=== PATIENT | male | born 1950 | race Caucasian/White ===

== ENCOUNTER → 2020-06-16 | Outpatient (CLI) | payer SELFPAY | END | disposition home or self-care (01) | LOC: PLD 12:30 → LAB SHORT 12:30 | DX: J02.9 Acute pharyngitis, unspecified (principal) | CPT/HCPCS: 87081 ==

== ENCOUNTER 2021-01-19 13:17 | Emergency (ER) | payer OTHER ==
[~2021-01-19] VITALS: Ht 172.7 cm; Wt 93.0 kg
== END 2021-01-19 13:43 | disposition home or self-care (01) ==
LOC: ER 13:17
DX: R04.0 Epistaxis (principal)
CPT/HCPCS: 30901; 99283-25

== ENCOUNTER 2021-01-20 13:22 | Emergency (ER) | payer OTHER ==
[~2021-01-20] VITALS: Ht 172.7 cm; Wt 93.0 kg
== END 2021-01-20 13:50 | disposition home or self-care (01) ==
LOC: ER 13:22
DX: Z44.8 Encounter for fitting and adjustment of other external prosthetic devices (principal)
CPT/HCPCS: 99282

== ENCOUNTER 2021-04-10 03:31 | Inpatient (IN) | payer OTHER ==
[~2021-04-10] VITALS: Ht 170.2 cm; Wt 90.7 kg
[2021-04-10 03:55] LABS: BASOPHILS ABSOLUTE AUTO 0.05 K/mm3 (0.00-0.23); BASOPHILS PERCENT AUTO 0 % (0-2); EOSINOPHILS ABSOLUTE AUTO 0.46 K/mm3 (0.00-0.68); EOSINOPHILS PERCENT AUTO 3 % (0-6); Hematocrit 32.2 % (37.0-53.0); Hemoglobin 11.2 g/dL (13.5-17.5); IMMATURE GRAN ABSOLUTE AUTO 0.12 K/mm3 (0.00-0.10); IMMATURE GRAN PERCENT AUTO 1 % (0-1); LYMPHOCYTES ABSOLUTE AUTO 1.73 K/mm3 (0.84-5.20); LYMPHOCYTES PERCENT AUTO 10 % (21-46); MONOCYTES ABSOLUTE AUTO 0.63 K/mm3 (0.16-1.47); MONOCYTES PERCENT AUTO 4 % (4-13); Mean Corpuscular HGB 33.9 pg (26.0-34.0); Mean Corpuscular HGB Conc 34.8 g/dL (31.5-36.5); Mean Corpuscular Volume 98 fL (80-100); Mean Platelet Volume 8.9 fL (9.1-12.4); NEUTROPHILS PERCENT AUTO 83 % (41-73); Platelet Count 146 K/mm3 (150-400); RDW Coefficient Variation 13.6 % (11.7-14.2); RDW Standard Deviation 48.6 fL (35.1-46.3); White Blood Cell Count 17.79 K/mm3 (4.00-11.30)
[2021-04-10 04:09] LABS: Alanine Aminotransfer (ALT/SGP 49 U/L (12-78); Albumin, Blood 3.3 g/dL (3.4-5.0); Albumin/Globulin Ratio 0.7 (0.8-1.8); Alk Phos 137 U/L (50-136); Anion Gap 8 mmol/L (6-16); Aspartate Aminotrans (AST/SGOT 61 U/L (12-37); Bilirubin, Total 1.7 mg/dL (0.1-1.0); Blood Urea Nitrogen 9 mg/dL (8-24); Bun/Creatinine Ratio 13.6 (12.0-20.0); CO2, Blood 28 mmol/L (21-32); Chloride, Blood 89 mmol/L (98-108); Creatinine, Blood 0.66 mg/dL (0.60-1.20); Globulin, Blood 4.6 g/dL (2.2-4.0); Glomerular Filtration Rate >60 (60-); Glucose, Blood 134 mg/dL (70-99); Potassium, Blood 3.6 mmol/L (3.5-5.5); Sodium, Blood 125 mmol/L (136-145); Total Protein, Blood 7.9 g/dL (6.4-8.2)
[2021-04-10 05:37] LABS: Source, Urine Voided
[2021-04-10 05:50] LABS: Appearance, Urine Clear (Clear); Bilirubin, Urine Neg (Neg); Blood, Urine Neg (Neg); Color, Urine Yellow (P-Yellow); Glucose Qualitative, Urine Neg (Neg); Ketones, Urine Neg (Neg); Leukocyte Esterase, Urine Neg (Neg); Nitrite, Urine Neg (Neg); Protein, Urine Neg (Neg); Urobilinogen, Urine 1+ (Normal)
[2021-04-10 06:34] LABS: Influenza A, PCR NEGATIVE (NEGATIVE); Influenza B, PCR NEGATIVE (NEGATIVE); Resp Syncytial Virus, PCR NEGATIVE (NEGATIVE); SARS-Cov-2 (COVID-19) PCR, MMC NEGATIVE (NEGATIVE)
[2021-04-10] MEDS ORDERED: METR500 PO (08:32)
[2021-04-10] MEDS ORDERED: CIPR500 PO (08:32)
[2021-04-10 12:43] LABS: Anion Gap 9 mmol/L (6-16); Blood Urea Nitrogen 12 mg/dL (8-24); Bun/Creatinine Ratio 13.4 (12.0-20.0); CO2, Blood 24 mmol/L (21-32); Calcium, Blood 8.4 mg/dL (8.5-10.1); Chloride, Blood 93 mmol/L (98-108); Glomerular Filtration Rate >60 (60-); Glucose, Blood 107 mg/dL (70-99); Potassium, Blood 4.4 mmol/L (3.5-5.5); Sodium, Blood 126 mmol/L (136-145)
[2021-04-10 13:09] LABS: CHOL/HDL RATIO 4.4; Cholesterol 133 mg/dL (50-200); HDL Cholesterol 30 mg/dL (>39); LDL/HDL RATIO 2.9; Low Density Lipoprotein Chol 88 mg/dL (0-110); Triglycerides 73 mg/dL (30-160); Very Low Density Lipoprot Chol 14 mg/dL (6-32)
[2021-04-10] MEDS ORDERED: ATEN50 PO (16:19)
[2021-04-10] MEDS ORDERED: CHLO25B PO (16:20)
[2021-04-10] MEDS ORDERED: MELA3 PO (16:22)
[2021-04-10] MEDS ORDERED: PYRI100 PO (16:23)
[2021-04-10] MEDS ORDERED: SILD50TA PO (16:23)
--- NOTE | 2021-04-10 19:17 | NUR ---
PATIENT ALERT AND ORIENTED X 4, ABLE TO VERBALIZE NEEDS, ON TELE NSR, RA. ICE CHIPS TILL MIDNIGHT, NPO AFTER MIDNIGHT FOR SURGERY. ON CONTINUES NS AT 100/HR. DENIES PAIN OR DISCOMFOR.
[2021-04-11 05:17] LABS: BASOPHILS ABSOLUTE AUTO 0.03 K/mm3 (0.00-0.23); BASOPHILS PERCENT AUTO 0 % (0-2); EOSINOPHILS ABSOLUTE AUTO 0.08 K/mm3 (0.00-0.68); EOSINOPHILS PERCENT AUTO 1 % (0-6); Hematocrit 26.3 % (37.0-53.0); IMMATURE GRAN ABSOLUTE AUTO 0.05 K/mm3 (0.00-0.10); IMMATURE GRAN PERCENT AUTO 1 % (0-1); LYMPHOCYTES ABSOLUTE AUTO 0.55 K/mm3 (0.84-5.20); LYMPHOCYTES PERCENT AUTO 6 % (21-46); MONOCYTES ABSOLUTE AUTO 0.58 K/mm3 (0.16-1.47); MONOCYTES PERCENT AUTO 6 % (4-13); Mean Corpuscular HGB 33.8 pg (26.0-34.0); Mean Corpuscular HGB Conc 34.2 g/dL (31.5-36.5); Mean Corpuscular Volume 99 fL (80-100); Mean Platelet Volume 9.2 fL (9.1-12.4); NEUTROPHILS ABSOLUTE AUTO 8.48 K/mm3 (1.96-9.15); NEUTROPHILS PERCENT AUTO 87 % (41-73); Platelet Count 90 K/mm3 (150-400); RDW Coefficient Variation 14.3 % (11.7-14.2); RDW Standard Deviation 51.2 fL (35.1-46.3); Red Blood Cell Count 2.66 M/mm3 (4.30-5.90); White Blood Cell Count 9.77 K/mm3 (4.00-11.30)
[2021-04-11 06:07] LABS: Alanine Aminotransfer (ALT/SGP 49 U/L (12-78); Albumin, Blood 2.6 g/dL (3.4-5.0); Albumin/Globulin Ratio 0.7 (0.8-1.8); Alk Phos 69 U/L (50-136); Anion Gap 8 mmol/L (6-16); Aspartate Aminotrans (AST/SGOT 56 U/L (12-37); Bilirubin, Total 4.5 mg/dL (0.1-1.0); Blood Urea Nitrogen 16 mg/dL (8-24); Bun/Creatinine Ratio 21.1 (12.0-20.0); CO2, Blood 24 mmol/L (21-32); Calcium, Blood 8.4 mg/dL (8.5-10.1); Chloride, Blood 96 mmol/L (98-108); Creatinine, Blood 0.76 mg/dL (0.60-1.20); Globulin, Blood 3.7 g/dL (2.2-4.0); Glomerular Filtration Rate >60 (60-); Glucose, Blood 109 mg/dL (70-99); Sodium, Blood 128 mmol/L (136-145); Total Protein, Blood 6.3 g/dL (6.4-8.2)
[2021-04-11 07:58] LABS: International Normalized Ratio 1.49; Prothrombin Time Results 15.2 Sec (9.7-11.5)
--- NOTE | 2021-04-11 16:50 | NUR ---
DAY SHIFT SUMMARY 70 YR OLD MALE PT ADMITTED WITH ACUTE PANCREATITIS. PT WENT DOWN FOR MRI TODAY. TO GO FOR [facility] TOMORROW AT 0930. PT HAS BEEN NPO MOST OF DAY, JUST CHANGED TO CLEAR LIQUID DIET UNTIL MIDNIGHT. TO BE NPO AFTER MIDNIGHT AND NO PAIN MEDS AFTER 0200. PT INDEPENDENT IN ROOM, A/OX4, ON RA. PT ON TELE WITH SR AT 83. CALL LIGHT WITHING REACH AND PT ABLE TO CALL APPROPRIATELY.
[2021-04-12 05:26] LABS: Hematocrit 26.1 % (37.0-53.0); Hemoglobin 8.9 g/dL (13.5-17.5); Mean Corpuscular HGB 33.5 pg (26.0-34.0); Mean Corpuscular HGB Conc 34.1 g/dL (31.5-36.5); Mean Corpuscular Volume 98 fL (80-100); Mean Platelet Volume 8.8 fL (9.1-12.4); Platelet Count 87 K/mm3 (150-400); RDW Coefficient Variation 14.3 % (11.7-14.2); RDW Standard Deviation 51.6 fL (35.1-46.3); Red Blood Cell Count 2.66 M/mm3 (4.30-5.90); White Blood Cell Count 5.74 K/mm3 (4.00-11.30)
[2021-04-12 06:00] LABS: Alanine Aminotransfer (ALT/SGP 41 U/L (12-78); Albumin, Blood 2.7 g/dL (3.4-5.0); Albumin/Globulin Ratio 0.7 (0.8-1.8); Alk Phos 78 U/L (50-136); Anion Gap 8 mmol/L (6-16); Aspartate Aminotrans (AST/SGOT 52 U/L (12-37); Bilirubin, Total 2.2 mg/dL (0.1-1.0); Blood Urea Nitrogen 14 mg/dL (8-24); Bun/Creatinine Ratio 20.6 (12.0-20.0); CO2, Blood 21 mmol/L (21-32); Calcium, Blood 8.3 mg/dL (8.5-10.1); Chloride, Blood 101 mmol/L (98-108); Creatinine, Blood 0.68 mg/dL (0.60-1.20); Ferritin, Serum 349 ng/mL (26-388); Globulin, Blood 3.9 g/dL (2.2-4.0); Glomerular Filtration Rate >60 (60-); Glucose, Blood 123 mg/dL (70-99); Iron Serum 42 ug/dL (65-175); Magnesium, Blood 1.7 mg/dL (1.6-2.4); Potassium, Blood 3.8 mmol/L (3.5-5.5); Sodium, Blood 130 mmol/L (136-145); Total Iron Binding Capacity 210 ug/dL (250-450); Total Protein, Blood 6.6 g/dL (6.4-8.2)
--- NOTE | 2021-04-12 06:34 | NUR ---
Patient [id number] voices his need to go home during the night. He takes off his heart monitor, dress himself up and ready to go. this nurse was checking on patient and had to advise patient to stay. He stated that he can not sleep, medication offered, yet patient refused. No other events occurs. He is still receiving N/S @100 ML/HR. We will continue to monitor patient.
[2021-04-12] MEDS ORDERED: PANT40 PO (15:19)
--- NOTE | 2021-04-12 16:24 | NUR ---
DISCHARGE SUMMARY IV AND TELE REMOVED. PT EDUCATION REVIEWED WITH AND SIGNED BY PT. PT DISCHARGED HOME, TAKEN DOWN ALONG WITH PERSONAL BELONGINGS VIA WHEELCHAIR. [facility] RIDE. MEDS FAXED INTO THE [place] [facility].
== END 2021-04-12 16:27 | disposition home or self-care (01) | DRG 439 ==
LOC: ER 03:31 → MEDS 13:34 → ENPENDDIS 04-12 13:48 → MEDS 04-12 16:27
PROVIDERS: Emergency Medicine; Internal Medicine; Surgery; ADMIT Family Medicine
DX: K85.90 Acute pancreatitis without necrosis or infection, unspecified (principal); E87.1 Hypo-osmolality and hyponatremia; D64.9 Anemia, unspecified; Z20.822 Contact with and (suspected) exposure to COVID-19; E66.9 Obesity, unspecified; I10 Essential (primary) hypertension; Z68.31 Body mass index [BMI] 31.0-31.9, adult; Z98.890 Other specified postprocedural states; D69.6 Thrombocytopenia, unspecified; K70.30 Alcoholic cirrhosis of liver without ascites
CPT/HCPCS: 0241U; 36415; 71045; 71275; 74176; 74181; 76705; 78226; 80048; 80053; 80061; 81003; 82728; 83540; 83550; 83605; 83690; 83735; 84145; 84484; 85025; 85027; 85610; 87040; 87077; 87186; 93005; 93010; 96365; 96375; 99285; A9270; A9537; C9113; J0696; J1650; J2405; J2543; J7030; Q9967

== ENCOUNTER 2022-06-07 09:24 | Emergency (ER) | payer OTHER ==
[~2022-06-07] VITALS: Ht 170.2 cm; Wt 87.5 kg
[~2022-06-07 09:24] MED LIST: ATEN50 PO; CHLO25B PO; CIPR500 PO; MELA3 PO; METR500 PO; PANT40 PO; PYRI100 PO; SILD50TA PO
[2022-06-07] MEDS ORDERED: DOXE25 PO (09:51)
[2022-06-07] MEDS ORDERED: VITAMIN D325 MC3 PO (09:51)
[2022-06-07] MEDS ORDERED: Fruit C-100100 MG PO (09:52)
[2022-06-07] MEDS ORDERED: FEROSUL325 M1 PO (09:53)
[2022-06-07] MEDS ORDERED: [UNRECOGNIZED DRUG - OTHER] MC (09:53)
[2022-06-07 10:00] VITALS: BP 140/86
[2022-06-07 10:38] LABS: BASOPHILS ABSOLUTE AUTO 0.02 K/mm3 (0.00-0.23); BASOPHILS PERCENT AUTO 0 % (0-2); EOSINOPHILS PERCENT AUTO 2 % (0-6); Hemoglobin 8.5 g/dL (13.5-17.5); IMMATURE GRAN ABSOLUTE AUTO 0.03 K/mm3 (0.00-0.10); IMMATURE GRAN PERCENT AUTO 1 % (0-1); LYMPHOCYTES ABSOLUTE AUTO 1.33 K/mm3 (0.84-5.20); LYMPHOCYTES PERCENT AUTO 28 % (21-46); MONOCYTES ABSOLUTE AUTO 0.55 K/mm3 (0.16-1.47); MONOCYTES PERCENT AUTO 12 % (4-13); Mean Corpuscular Volume 100 fL (80-100); Mean Platelet Volume 8.9 fL (9.1-12.4); NEUTROPHILS ABSOLUTE AUTO 2.67 K/mm3 (1.96-9.15); NEUTROPHILS PERCENT AUTO 57 % (41-73); Platelet Count 113 K/mm3 (150-400); RDW Coefficient Variation 13.6 % (11.7-14.2); RDW Standard Deviation 49.7 fL (35.1-46.3)
[2022-06-07 10:45] LABS: Source, Urine Foley catheter
[2022-06-07 10:49] LABS: Bilirubin, Urine Neg (Neg); Blood, Urine 5+ (Neg); Glucose Qualitative, Urine Neg (Neg); Ketones, Urine Neg (Neg); Leukocyte Esterase, Urine 1+ (Neg); Nitrite, Urine Neg (Neg); Protein, Urine 2+ (Neg); Urobilinogen, Urine 1+ (Normal)
[2022-06-07 10:54] LABS: Appearance, Urine Hazy (Clear); Color, Urine Yellow (P-Yellow)
[2022-06-07 10:55] LABS: Red Blood Cells, Urine 25-50 /hpf (0-2); Squamous Epithelial Cells Few /hpf (Few)
[2022-06-07 10:56] LABS: Bacteria Rare /hpf
[2022-06-07 10:57] LABS: Albumin, Blood 2.9 g/dL (3.4-5.0); Albumin/Globulin Ratio 0.7 (0.8-1.8); Bilirubin, Total 1.2 mg/dL (0.1-1.0); Bun/Creatinine Ratio 17.2 (12.0-20.0); Calcium, Blood 8.5 mg/dL (8.5-10.1); Creatinine, Blood 1.16 mg/dL (0.60-1.20); Globulin, Blood 3.9 g/dL (2.2-4.0); Potassium, Blood 3.9 mmol/L (3.5-5.5); Total Protein, Blood 6.8 g/dL (6.4-8.2)
== END 2022-06-07 13:55 | disposition home or self-care (01) ==
LOC: ER 09:24
PROVIDERS: Student in an Organized Health Care Education/Training Program
DX: G89.18 Other acute postprocedural pain (principal); R10.9 Unspecified abdominal pain; Z79.899 Other long term (current) drug therapy; I10 Essential (primary) hypertension; F17.290 Nicotine dependence, other tobacco product, uncomplicated
CPT/HCPCS: 36415; 74177; 80053; 81001; 83605; 83690; 85025; 86850; 86900; 86901; 87086; 99284-25; Q9967

== ENCOUNTER → 2023-09-26 | Outpatient (CLI) | payer OTHER ==
[~2023-09-26] MED LIST changes: +DOXE25 PO; +FEROSUL325 M1 PO; +Fruit C-100100 MG PO; +VITAMIN D325 MC3 PO; +[UNRECOGNIZED DRUG - OTHER] MC
[2023-09-28 15:59] LABS: Creatinine Urine 73.7 mg/dL (27.00-270.00); Microalbumin, Urine Quant. 13.8 mg/L (0.000-20.000); Protein, Urine Quantitative 12.8 mg/dL (0.0-11.9)
== END ==
LOC: LAB 06:00 → LAB SHORT 06:00 → EDSTATUS 09-23 10:30 → LAB FUT 09-23 10:30
PROVIDERS: Internal Medicine Nephrology
DX: N18.30 Chronic kidney disease, stage 3 unspecified (principal); D63.1 Anemia in chronic kidney disease; N25.81 Secondary hyperparathyroidism of renal origin; E55.9 Vitamin D deficiency, unspecified; E78.00 Pure hypercholesterolemia, unspecified; R76.9 Abnormal immunological finding in serum, unspecified; R94.5 Abnormal results of liver function studies; R94.6 Abnormal results of thyroid function studies
CPT/HCPCS: 81050; 82043; 82570; 84156

== ENCOUNTER → 2023-11-19 | Outpatient (CLI) | payer OTHER | LOC: LAB SHORT 14:53 → LAB 14:53 | DX: L08.9 Local infection of the skin and subcutaneous tissue, unspecified (principal) | CPT/HCPCS: 87070; 87077; 87186; 87205 ==

== ENCOUNTER 2024-05-25 06:22 | Emergency (ER) | payer OTHER ==
[~2024-05-25] VITALS: Ht 172.7 cm; Wt 83.9 kg
[2024-05-25 09:00] VITALS: BP 92/63
[2024-05-25] MEDS ORDERED: NS 1,000 ML IV SCH (09:05)
[2024-05-25 09:46] LABS: Hematocrit 33.5 % (37.0-53.0); Hemoglobin 11.2 g/dL (13.5-17.5); Mean Corpuscular HGB 31.2 pg (26.0-34.0); Mean Corpuscular HGB Conc 33.4 g/dL (31.5-36.5); Mean Corpuscular Volume 93 fL (80-100); Mean Platelet Volume 9.8 fL (9.1-12.4); Platelet Count 120 K/mm3 (150-400); RDW Coefficient Variation 13.7 % (11.7-14.2); RDW Standard Deviation 46.7 fL (35.1-46.3); Red Blood Cell Count 3.59 M/mm3 (4.30-5.90); White Blood Cell Count 12.94 K/mm3 (4.00-11.30)
[2024-05-25 10:10] LABS: International Normalized Ratio 1.03
== END 2024-05-25 12:39 | disposition home or self-care (01) ==
LOC: ER 06:22
PROVIDERS: Student in an Organized Health Care Education/Training Program
DX: T83.091A Other mechanical complication of indwelling urethral catheter, initial encounter (principal); R31.9 Hematuria, unspecified; F17.200 Nicotine dependence, unspecified, uncomplicated; I10 Essential (primary) hypertension; Z79.899 Other long term (current) drug therapy
CPT/HCPCS: 51798; 85027; 85610; 86850; 86900; 86901; 99283-25; J7030